=== PATIENT | male | born 1930 | race Caucasian/White ===

== ENCOUNTER 2017-01-29 13:00 | Inpatient (IN) | payer MEDICARE, OTHER ==
[~2017-01-29] VITALS: Ht 182.9 cm; Wt 81.0 kg
--- NOTE | ~2017-01-29 | CON ---
PATIENT'S NAME: FOUZIA FIGUEROA [facility] AGE: 86 Y [address] ROOM: [place] [address] LOCATION: GPCU ADMIT DATE: 01/29/2017 Consultation DISCHARGE DATE: FAMILY PHYSICIAN: Oskar Sol MD ATTENDING PHYSICIAN: BIJU HILL DATE OF CONSULTATION: 01/29/2017 REFERRING PHYSICIAN: Sari Roberts MD REFERRING PHYSICIAN: 1. Biju Hill MD. 2. Oskar Sol MD. CONSULTING PHYSICIAN: Sari Roberts MD. REASON FOR CONSULTATION: Possible biliary obstruction. HISTORY OF PRESENT ILLNESS: The patient is a demented 86-year-old gentleman, who was noncommunicative. He is unable to answer any questions. The history has been obtained through the who lives with him. The patient has not been well for the last several weeks. According to the , he has not been eating. He was caught particularly bad for the last three days. He started vomiting. According to her, he also had some fever and chills. He ultimately was so weak that he was brought to [place]. In [place], he was noted to have abnormal liver enzymes. He did have a CT of the abdomen and pelvis done that did not show any dilated ducts. However, his bilirubin continued to increase serially. His bilirubin was up to 6.7 with an alkaline phosphatase of 453, ALT of 79, AST of 123. Yesterday, the bilirubin was 5.8, ALT was 82, and AST was 151 and he also had a high lipase of 388. Amylase is normal at 106. Because of this concern, he was transferred here for further management. Denies any fever. He does have fever initially. White count is normal at 6.1. The patient is not complaining of any pain, however, the history is not reliable. At this point, he says he is asymptomatic. ALLERGIES: HE HAS A LITTLE ADVERSE REACTION TO ONDANSETRON. CURRENT MEDICATIONS: Include: 1. Allopurinol. 2. Metoprolol. PATIENT'S NAME: FOUZIA FIGUEROA [facility] AGE: 86 Y [address] ROOM: [place] [address] LOCATION: GPCU ADMIT DATE: 01/29/2017 Consultation DISCHARGE DATE: FAMILY PHYSICIAN: Oskar Sol MD ATTENDING PHYSICIAN: BIJU HILL 3. Glimepiride. 4. Pantoprazole. 5. Aspirin. 6. . 7. Sitagliptin. 8. Trazodone. 9. Atorvastatin. 10. Ranitidine. 11. Aricept. PAST MEDICAL HISTORY: He also has a history of dementia. He has a history of prostate CA. He had a prostatectomy done. He subsequently has had a raise in PSA and has been followed for that. He also has had coronary stents placed. He has a history of hypertension and diabetes mellitus. There is a history of possible hyperlipidemia also. About a year ago, in 2012, he apparently did have surgical resection done. This was probably for a perforated colon. We had a colostomy and this was reconnected. He has not had a problem since then. In 2004, Dr. Larson had operated on him for ruptured sigmoid diverticulitis. This colostomy was reversed in 2005. He had partial sigmoid colectomy. He also had an appendectomy at that time. He has also had herniorrhaphy in the past. In 2004, he does have a history of cholelithiasis, although I do note think he has had any resection done for that. FAMILY HISTORY: Noncontributory. REVIEW OF SYSTEMS: A detailed 10-point review of system was with the family history and negative other than what is mentioned in the history of present illness and past medical history. PHYSICAL EXAMINATION: GENERAL: Today, he is alert and awake, appears to be in no acute distress right now. VITAL SIGNS: Temperature 98, pulse is 104 per minute, respiratory rate 18, blood pressure is 124/60. HEENT: Examination reveals mild icterus, but no pallor. Oral cavity is normal. Nasal passages are clear. NECK: No masses are felt. No thyromegaly is felt. CARDIOVASCULAR: S1 and S2. Peripheral pulses are palpable and normal. No carotid bruits are heard. CHEST: Clear to auscultation bilaterally. No wheezes. No rhonchi. PATIENT'S NAME: FOUZIA FIGUEROA [facility] AGE: 86 Y [address] ROOM: [place] [address] LOCATION: GPCU ADMIT DATE: 01/29/2017 Consultation DISCHARGE DATE: FAMILY PHYSICIAN: Oskar Sol MD ATTENDING PHYSICIAN: BIJU HILL ABDOMEN: Soft. Nontender. There is mild gastric distention. MUSCULOSKELETAL: No obvious deformity was seen. NEUROLOGIC: He has dementia. He does talk incoherently. No acute neurological deficit seen. PELVIC/RECTAL: Deferred at this time. LABORATORY DATA: UA with microscopy, there is small amount of blood otherwise unremarkable. CBC showed WBC 5.2, hemoglobin 12.7, hematocrit 36, and platelet count 144. Complete metabolic screen shows sodium 132, potassium 3.9, chloride 98, bicarb is 27, BUN is 11, creatinine is 1.3. Total bilirubin 6.5, ALT of 90, AST is 133, alkaline phosphatase is 576, lipase is high up to 1415. CT images as above. The patient's MRCP is pending. IMPRESSION: The patient with a history of abnormal liver enzymes and high amylase. This likely does represent biliary pancreatitis as well as possible bile obstruction. We will await the results of the MRCP. The procedure of the whole differential of obstructive jaundice was explained to the daughter and the patient's . I did draw images for them. The procedure of upper endoscopy, retrograde cholangiopancreatography was explained in detail to the patient's and daughter. All risks, including but not limited to, failure to complete, anesthesia, bleeding, perforation, acute pancreatitis was clearly explained. They did ask some questions and gave us informed consent. We will await the results of the MRCP and then decide if we need to proceed with ERCP. MD AURA METZ/sampson /[id number] d: 01/29/17 2346 t: 01/31/17 1813, CONSULTATION REPORT
--- NOTE | ~2017-01-29 | HP ---
PATIENT'S NAME: FOUZIA FIGUEROA [facility] AGE: 86 Y [address] ROOM: [place] [address] LOCATION: GPCU ADMIT DATE: 01/29/2017 History & Physical DISCHARGE DATE: FAMILY PHYSICIAN: Oskar Sol MD ATTENDING PHYSICIAN: BIJU DELEON DATE OF SERVICE: CHIEF COMPLAINT: Biliary obstruction, nausea, vomiting, and abdominal pain. HISTORY OF PRESENT ILLNESS: This is an 86-year-old male with a history of dementia, type 2 diabetes, hypertension, who is transferred from [place] after presenting with nausea, vomiting, and diminished appetite, as well as some abdominal pain yesterday. The patient on evaluation was noted to have LFT abnormalities suggestive of biliary obstruction pattern. The patient was admitted and had supportive care as well as CAT scan of the abdomen done which did not exactly show anything to explain a biliary obstruction. However, patient's laboratory abnormalities are mildly worsened between yesterday and today and the patient subsequently is transferred here for further workup. The patient during my evaluation appears to be confused but per family who are at the bedside, they report that this is perhaps a baseline for him. The patient has had diminished appetite for the past several weeks, but the nausea and vomiting symptoms are particularly worse over the last 2 days at which point he was not able to tolerate any p.o. intake at all. The patient otherwise is resting comfortably with no reports of any fever or chills. PAST MEDICAL HISTORY: 1. Dementia. 2. Type 2 diabetes. 3. Hypertension. SOCIAL HISTORY: The patient has a remote history of smoking, but has quit for over 25 years. Occasional alcohol use, but no illicit drugs use reported. The patient lives at home with who is the primary pathology supervisor for him. FAMILY HISTORY: The patient has a history of bone cancer in his brother and diabetes in his mother. REVIEW OF SYSTEMS: All systems with the help of family members have been reviewed and are all negative except as described in the HPI. PATIENT'S NAME: FOUZIA FIGUEROA [facility] AGE: 86 Y [address] ROOM: [place] [address] LOCATION: GPCU ADMIT DATE: 01/29/2017 History & Physical DISCHARGE DATE: FAMILY PHYSICIAN: Oskar Sol MD ATTENDING PHYSICIAN: BIJU DELEON PHYSICAL EXAMINATION: VITAL SIGNS: Afebrile, blood pressure 124/71, heart rate 72, respiratory rate 18, saturating 95% on room air. HEENT: Dry mucosal membranes. Conjunctival pallor and scleral icterus noted. SKIN: Without rash or lesions. CHEST: Clear to auscultation bilaterally. HEART: S1 and S2. Regular rate and rhythm. ABDOMEN: Soft. Mid epigastrium tenderness to palpation noted. Positive bowel sounds. NEUROLOGICAL: Grossly nonfocal extremities. MUSCULOSKELETAL: No joint effusion or tenderness noted. DIAGNOSTIC DATA: CT of the abdomen done with IV contrast, not particularly showing any stones either in the gallbladder or common bile duct. No masses around the bile duct are seen as well. ASSESSMENT AND PLAN: 1. Biliary obstruction. LFT rise pattern very much suggestive of this despite negative CT abdomen. We will have an MRCP done to further assess. We will continue with IV Zosyn and get blood cultures in the meantime as well to cover our basis for this ascending cholangitis or acute cholecystitis in the setting and await GI input. 2. Acute pancreatitis, this is likely secondary to biliary obstruction. Lipase in the 800s and has clinical symptoms of acute pancreatitis as well. We will go ahead and treat with IV fluids, pain management, and supportive care going ahead and monitor for progress clinically. 3. Type 2 diabetes. The patient is on oral hypoglycemics at home. We will use sliding scale insulin while n.p.o. and continue to follow. 4. Essential hypertension. We will resume his home medications based on how his blood pressure does in the setting of his current and n.p.o. status. 5. Dementia, [id number]. 6. Deep vein thrombosis prophylaxis. We will use subcu heparin. MD ROSIE CORDON/sampson /[id number] D: [id number] HISTORY & PHYSICAL
--- NOTE | ~2017-01-29 | CON ---
PATIENT'S NAME: FOUZIA FIGUEROA [facility] AGE: 86 Y [address] ROOM: [address] [place], [place] [address] LOCATION: GPCU ADMIT DATE: 01/29/2017 Consultation DISCHARGE DATE: FAMILY PHYSICIAN: Oskar Sol MD ATTENDING PHYSICIAN: BIJU DELEON REFERRING PHYSICIAN: Sari Roberts MD ADDENDUM: I received the old cardiology records and I have to add the following. The patient was treated at [facility] and not at [facility] on January 31 to February 01, 2006. He had recent ischemic stress test and subsequent catheterization showed severe stenosis of the proximal left anterior descending artery and total occlusion of the mid left anterior descending artery. There was a successful intervention with deployment of three 2.75 diameter Taxus drug-eluting stents, two in the mid lesion, one in the proximal. EKG showed sinus rhythm in 2005. ERLINDA ANDREWS MD PE/sampson /[id number] d: 02/01/172207 t: 02/03/17903, CONSULTATION REPORT
--- NOTE | ~2017-01-29 | CON ---
PATIENT'S NAME: FOUZIA ALMENDAREZ [facility] AGE: 86 Y [address] ROOM: [place] [address] [facility] ADMIT DATE: 01/29/2017 Consultation DISCHARGE DATE: FAMILY PHYSICIAN: Oskar Sol MD ATTENDING PHYSICIAN: BIJU DELEON REFERRING PHYSICIAN: Sari Roberts MD HISTORY OF PRESENT ILLNESS: This consult requested by the Hospitalist Service because of atrial fibrillation. The initial impression was that this condition was not known before, however, after I read the transfer note from [place], atrial fibrillation is mentioned in his past medical history without details provided. The patient was presented to [place] because of anorexia and vomiting and found to have elevated liver enzymes and jaundice without clear cause, so he was transferred for a higher level of care. Since his arrival, he also has developed elevation of his lipase and he is treated as pancreatitis. In terms of his cardiac history, this is provided by family members as the patient has quite advanced dementia. He reportedly had a coronary stent around 2005 at [facility]. There is no history of cerebrovascular accident. He has diabetes type 2 and hypertension. PAST SURGICAL HISTORY: He had several hernia repairs. FAMILY HISTORY: Both parents in old age from natural causes, details unknown. 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 He quit smoking 28 years ago. He does not drink any significant amounts of alcohol. Lives at home with his . REVIEW OF SYSTEMS: There is no history of chest pain, shortness of breath, or syncope. No history of any bleeding disorder. He has fallen at least 4 times in the last year, most recently a week ago. He is very unsteady on his feet, but apparently does not use any assisting device. Remaining review of systems is negative. OUTPATIENT MEDICATIONS: 1. Allopurinol 300 mg daily. 2. Toprol-XL 25 mg daily. 3. Glimepiride 4 mg 1-1/2 tablet daily. 4. Pantoprazole 40 mg daily. 5. Lipitor 40 mg daily. 6. Aspirin 81 mg daily. PATIENT'S NAME: FOUZIA ALMENDAREZ [facility] AGE: 86 Y [address] ROOM: [place] [address] LOCATION: GPCU ADMIT DATE: 01/29/2017 Consultation DISCHARGE DATE: FAMILY PHYSICIAN: Oskar Sol MD ATTENDING PHYSICIAN: BIJU DELEON 7. Donepezil 10 mg daily. 8. Quetiapine 50 mg in the evening. 9. Januvia 100 mg daily. 10. Trazodone 50 mg in the evening. 11. Ranitidine 300 mg in the evening. PHYSICAL EXAMINATION: GENERAL: The patient is a pleasant, elderly man. VITAL SIGNS: He is 6 feet, weighs 77.4 kg. Blood pressure 132/72, pulse 57, but his electrocardiogram just now has a heart rate of 105. He is febrile. He is jaundiced. HEENT: Head: Normocephalic and atraumatic. NECK: Supple. No jugular venous distention or carotid bruits. LUNGS: Very few rales in the base on deep inspiration. HEART: Distant, irregular first and second heart sounds. ABDOMEN: Soft and nontender. EXTREMITIES: Lower extremities, no peripheral edema. Dorsalis pedis pulses are 2+. DIAGNOSTIC DATA: Electrocardiogram shows atrial fibrillation with rapid ventricular response, low voltage in the limb leads, diffuse T-wave changes. IMPRESSION: 1. Coronary artery disease by history. 2. Atrial fibrillation that possibly is chronic and possibly the patient is not anticoagulated because of the falls. 3. Hypertension. 4. Diabetes type 2. 5. Acute pancreatitis. 6. Jaundice. PLAN: I will check some cardiac markers. Review the echocardiogram. Probably, he will need a Lexiscan when the other medical problems are controlled. In terms of anticoagulation, it may be risky and he may be a candidate for left appendage closure, that we will discuss down the road. Thank you for allowing to participate in the care of Mr. Almendarez. ERLINDA ANDREWS MD PATIENT'S NAME: FOUZIA ALMENDAREZ [facility] AGE: 86 Y [address] ROOM: [address] [place], [place] [address] LOCATION: GPCU ADMIT DATE: 01/29/2017 Consultation DISCHARGE DATE: FAMILY PHYSICIAN: Oskar Sol MD ATTENDING PHYSICIAN: BIJU DELEON /[id number] d: 01/30/17 1925 t: 01/31/17 0749, CONSULTATION REPORT
--- NOTE | ~2017-01-29 | ECHO ---
Transthoracic Echocardiography Report (TTE) Demographics Patient Name FOUZIA FIGUEROA Date of Study 01/30/2017 Patient Number [id number] Visit Number [id number] Date of 1930 Room Number G6319 Gender Male Number Age 86 year(s) Referring Ebenezer Rosas MD Dry Cleaner Irving Murrell RVT, Physician RDCS Physician Interpreting Shahab Strauss Chief Lock Operator Physician A Supervising Ordering [facility] MD/MLP Physician Nurse Stress Well Servicing Rig Operator Conclusions Contractility Score Summary Normal Left Ventricular contractility was noted. Summary The estimated left ventricular ejection fraction is 55-60%. Mild concentric left ventricular hypertrophy. Diastolic function indeterminate due to patient's arrhythmia. Mildly dilated right ventricle. Mildly reduced right ventricular function. The left atrium is moderately dilated. There is no evidence of patent foramen ovale or atrial septal defect by color Doppler. Mild tricuspid regurgitation by color Doppler. Normal estimated pulmonary artery pressure. Procedure Type of Study TTE procedure:2D Echocardiogram. Procedure Date Date: 01/30/2017 Start: 01:39 PM Study Location: Inpatient Portable Technical Quality: Fair due to lung interference. Indications:Atrial fibrillation. Appropriate Use Criteria: 8 Patient Status: Routine Rhythm: Atrial fibrillation HR: 107 bpm BP: 137/72 mmHg M-Mode/2D Measurements LV Diastolic Dimension: 3.54 cm LV Systolic Dimension: 2.55 cm LV Septum Diastolic: 2 cm LV PW Diastolic: 1.46 cm AO Root Dimension: 2.4 cm Cardiac Output: 4.3 l/min AV Cusp Separation: 1.9 cm RV Diastolic Dimension: 2.83 cm LA volume: 83 ml LVOT: 2.1 cm RV Base: 3.12 cm LVOT VTI: 11.6 cm RV Mid: 3.25 cm LV Stroke volume: 40.16 ml TAPSE: 1.08 cm TDI-S': 13 cm/s Doppler Measurements AV Peak Velocity: 0.92 m/s MV Peak E-Wave: 0.91 m/s AV Peak Gradient: 3.42 mmHg MV Peak A-Wave: 0.36 m/s AV Mean Gradient: 2 mmHg MV E/A Ratio: 2.55 LVOT Peak Velocity: 0.63 m/s MV P1/2t: 47 msec TR Gradient:25.6 mmHg PV Peak Velocity: 0.79 m/s Estimated RAP:5 mmHg PV Peak Gradient: 2.5 mmHg Estimated RVSP: 31 mmHg Estimated PASP: 30.6 mmHg Findings Left Ventricle Mild concentric left ventricular hypertrophy. Diastolic function indeterminate due to patient's arrhythmia. Right Ventricle Mildly dilated right ventricle. Mildly reduced right ventricular function. Left Atrium The left atrium is moderately dilated. There is no evidence of patent foramen ovale or atrial septal defect by color Doppler. Right Atrium The right atrium is mildly dilated. Mitral Valve Normal mitral valve structure and function. Trivial mitral regurgitation by color Doppler. Aortic Valve The aortic valve is mildly sclerotic. Tricuspid Valve Mild tricuspid regurgitation by color Doppler. Normal estimated pulmonary artery pressure. Pulmonic Valve Normal pulmonic valve structure and function. Pericardial Effusion No evidence of pericardial effusion. Miscellaneous Visualized portions of the aortic root and ascending aorta appear normal in size. Suboptimal subcostal window to evaluate the IVC and interatrial septum. Pleural Effusion No evidence of pleural effusion. Contractility Score LV regional wall motion:(0-Non visualized 1-Normal 2-Hypokinesis 3-Akinesis 4-Dyskinesis 5-Aneurysm) Signature dtt: Robert Gudino dtd: 01/30/17 1957 Physician Self Edit
--- NOTE | ~2017-01-29 | ESTC ---
Cardiac Perfusion Imaging Demographics Patient Name CAROLINA Saab Gender Male Patient Number [id number] Race Visit Number [id number] Ethnicity Corporate ID Room Number G6319 Accession Number [id number] Height 72 inches Date of 1930 Weight 170 pounds Shahab Hernandez Interpreting KYLEE Reilly Date of study 02/03/2017 Physician Yair Jean MD Supervising /MLP Shahab Strauss NM Technologist Lesley Hale MD Ordering Physician Shahab Hale MD failure analysis technician Stress ECG Reading Shahab Strauss Nurse Benito Kline RN Physician Geoffrey Leon RN Procedure Procedure Type: Nuclear Stress Test:Pharmacological, Lexiscan, Cardiolite Stress Test Procedure Start time: 02/03/2017 00:00 Indications: History of CAD. Risk Factors The patient risk factors include:prior PCI;former tobacco use, treated hypercholesterolemia, treated hypertension, orally-treated diabetes mellitus, dyslipidemia and ( years not smokin). Conclusions Impression ECG portion of the lexiscan stress test is clinically negative for ischemia by diagnostic criteria. Myocardial perfusion imaging is mildly abnormal. The images reveal a predominantly reversible defect in the entire inferior wall inferolateral consistent with ischemia . Overall left ventricular systolic function was normal. The calculated LVEF is 79% and TID RATIO IS ELEVATED AT 1.39. This is a intermediate risk stress test. Stress Protocols Resting ECG A flutter negative Ts V1-3 Pre-stress physical exam: Patient assessed by Dr Gudino prior to testing. Stress Protocol:Pharmacologic Predicted HR: 135 bpm ECG Findings No ECG changes suggestive of ischemia. Arrhythmias No new rhythm abnormality. Symptoms No symptoms with Lexiscan infusion. Stress Interpretation Appropriate hemodynamic response to Lexiscan. No significant ST-T wave changes with Lexiscan. ECG portion is negative for ischemia by diagnostic criteria. Imaging Results Applied corrections - Motion correction applied High risk findings Summed scores - LV dilatation (TID) - Summed stress score: 21 - Summed rest score: 14 - Summed difference score: 7 Stress ejection Ejection fraction:79 % EDV :77 ml ESV :16 ml Stroke volume :61 ml LV mass :108 gr Imaging Protocols Rest Stress Isotope:Tc99m Sestamibi IV Isotope: Tc99m Sestamibi IV Isotope dose:12.83 mCi Isotope dose:39.3 mCi Date:02/03/2017 08:20 Date:02/03/2017 10:53 Technique: SPECT Technique: Gated Supine SPECT Supine IV remains in place after procedure. Procedure Medications - Regadenoson (Lexiscan) 0.4 mg IV over 10-15 sec. I.V. 0.4 mg. Medical History Admission Data Admission date: 01/29/2017 Admission Time: 13:21 Hospital Status: Inpatient. Signatures dtt: CHRISSY COREAS dtd: 02/03/17 0000 Physician Self Edit
--- NOTE | ~2017-01-29 | DS ---
PATIENT'S NAME: FOUZIA FIGUEROA [facility] AGE: 86 Y [address] ROOM: [id number] [place], [place] [id number] LOCATION: GPCU ADMIT DATE: 01/29/2017 Discharge Summary DISCHARGE DATE: 02/03/2017 FAMILY PHYSICIAN: Oskar Sol MD ATTENDING PHYSICIAN: David Hill PRINCIPAL DIAGNOSES: 1. Biliary obstruction. 2. Acute biliary pancreatitis. 3. Persistent AFib and A-flutter, new onset. 4. Type 2 diabetes. 5. Dementia. 6. Stable angina. 7. Essential hypertension. HOSPITAL COURSE: This is an 86-year-old male with history of diabetes, dementia, presented initially with complaints of abdominal pain and on initial evaluation was found to have LFTs abnormalities consistent with a biliary obstruction as well as lipase elevation consistent with biliary related acute pancreatitis. The patient was promptly admitted and started on broad-spectrum antibiotics for possible ascending cholangitis related to this and GI eval. The patient did have an MRCP done, which did not show clear signs of an obstruction as well as any stones or any mass causing an obstruction. The patient was monitored clinically at length of hospital stay and showed significant improvement and supportive care with regard to his biliary obstructing symptoms and LFTs continued to trend towards normalizing at this point. The patient on tele monitor was incidentally found to be in AFib, A- flutter, and rhythm stayed persistent. The patient was evaluated by Cardiology and after discussion with his family at length about the pros and cons of anticoagulation, it was decided that the patient be brought on anticoagulation and started on Eliquis after 24 to 48 hours stay on heparin drip. The patient subsequently had a cardiac stress test done to further risk stratify and workup of an invasive and stress test today returned to be positive for reversible ischemia. The patient however did not have symptoms with regard to that and troponins have been negative and patient ambulating with little difficulty. After discussing with the cardiology team and family, the patient will be discharged to home today and he is to come back as outpatient on Monday, 02/06 at 7 a.m. to have cardiac cath done as an outpatient procedure. PHYSICAL EXAMINATION: VITAL SIGNS: Stable. Heart rate 80s to 90s. CHEST: Clear to auscultation bilaterally. HEART: S1, S2, regular. ABDOMEN: Soft, nontender, nondistended. EXTREMITIES: Without edema. PATIENT'S NAME: FOUZIA FIGUEROA [facility] AGE: 86 Y [address] ROOM: [place] [id number] [facility] ADMIT DATE: 01/29/2017 Discharge Summary DISCHARGE DATE: 02/03/2017 FAMILY PHYSICIAN: Oskar Sol MD ATTENDING PHYSICIAN: David Hill MEDICATIONS: Per MAR includin. Metoprolol 50 mg p.o. b.i.d. 2. Eliquis 5 mg p.o. b.i.d. The patient instructed to not take Eliquis the day prior cardiac cath. DISPOSITION: Home, will follow up with PCP and cardiology. Greater than 30 minutes were spent in discharge planning and facilitating. MD ROSIE CORDON/modl /[id number] d: 02/04/17 0315 t: 02/05/17 1559, DISCHARGE SUMMARY
[2017-01-29] MEDS ORDERED: ZYLOPRIM300 MG PO (14:21)
[2017-01-29] MEDS ORDERED: TOPROL XL25 MG PO (14:21)
[2017-01-29] MEDS ORDERED: PROTONIX40 MG PO (14:22)
[2017-01-29] MEDS ORDERED: AMARYL2 MG PO (14:22)
[2017-01-29] MEDS ORDERED: ASPIRIN LO-DOSE81 MG PO (14:23)
[2017-01-29] MEDS ORDERED: LIPITOR40 MG PO ×2 (14:23→14:25)
[2017-01-29] MEDS ORDERED: JANUVIA 100 MG100 MG PO (14:24)
[2017-01-29] MEDS ORDERED: SEROQUEL25 MG PO (14:24)
[2017-01-29] MEDS ORDERED: DESYREL50 MG PO (14:25)
[2017-01-29] MEDS ORDERED: RANITIDINE HCL300 MG PO (14:26)
[2017-01-29] MEDS ORDERED: ARICEPT10 MG PO (14:27)
[2017-01-29 14:47] LABS: HEMOGLOBIN 12.7 g/dL (11.0-16.0); MCH 33.4 pg (27.0-34.0); MCHC 35.3 gm/dL (32.0-36.5); MCV 94.7 fl (83.0-98.0); MPV 9.8 fl (9.4-12.4); PLATELET COUNT 144 K/uL (150-450); WBC 5.2 K/uL (4.0-11.0)
[2017-01-29 14:55] LABS: INR - (THERAPEUTIC) 1.08 (0.92-1.07); PROTIME 11.3 SECONDS (9.8-11.4)
[2017-01-29 15:03] LABS: ALBUMIN 2.6 gm/dL (3.5-5.0); ANION GAP 10.9 (10.0-19.0); CALCIUM 8.5 mg/dL (8.5-10.5); CREATININE 1.3 mg/dL (0.6-1.3); MAGNESIUM 1.8 mg/dL (1.8-2.6); POTASSIUM 3.9 mMol/L (3.7-5.1); TOTAL BILIRUBIN 6.5 mg/dL (0.0-1.5); TOTAL PROTEIN 6.5 g/dL (6.0-8.4)
[2017-01-29 15:14] LABS: ABSOLUTE NEUTROPHIL CT (ANC) 3.1 K/uL (1.4-9.0); LYMPHOCYTE # 1.2 K/uL (0.8-4.0); LYMPHOCYTE % 23 %; MONOCYTE # 0.4 K/uL (0.0-1.0); SEGMENTED NEUTROPHIL # 3.1 K/uL (1.4-9.0); SEGMENTED NEUTROPHIL % 60 %
[2017-01-29 16:04] LABS: BLOOD URINE 10 /UL (NEGATIVE); COLOR URINE BROWN (YELLOW); GLUCOSE URINE 50 mg/dL (NEGATIVE); KETONE URINE NEGATIVE (NEGATIVE); LEUKOCYTES URINE 25 /UL (NEGATIVE); NITRITE URINE NEGATIVE (NEGATIVE); PROTEIN URINE 30 mg/dL (NEGATIVE); SPEC GRAVITY URINE 1.015 (1.003-1.035); TURBIDITY URINE CLEAR (CLEAR); UROBILINOGEN URINE 4 mg/dL (NORMAL)
[2017-01-29 16:21] LABS: BACTERIA URINE MODERATE (NEGATIVE); EPITHELIAL URINE 0-2 #/HPF (NEGATIVE); RBC URINE 0-2 #/HPF (NEGATIVE)
[2017-01-29 16:22] LABS: MUCUS URINE 2+ (NEGATIVE)
[2017-01-30 06:31] LABS: HEMATOCRIT 34.8 % (33.0-50.0); HEMOGLOBIN 11.9 g/dL (11.0-16.0); MCH 32.9 pg (27.0-34.0); MCHC 34.2 gm/dL (32.0-36.5); MCV 96.1 fl (83.0-98.0); MPV 10.2 fl (9.4-12.4); PLATELET COUNT 133 K/uL (150-450); RBC 3.62 M/uL (3.50-5.50); RDW-CV 14.1 % (11.9-14.6); WBC 4.6 K/uL (4.0-11.0)
[2017-01-30 06:43] LABS: ALBUMIN 2.4 gm/dL (3.5-5.0); ANION GAP 11.1 (10.0-19.0); CALCIUM 7.9 mg/dL (8.5-10.5); MAGNESIUM 1.6 mg/dL (1.8-2.6); POTASSIUM 4.1 mMol/L (3.7-5.1); TOTAL BILIRUBIN 6.2 mg/dL (0.0-1.5); TOTAL PROTEIN 5.8 g/dL (6.0-8.4)
[2017-01-30 07:18] LABS: LYMPHOCYTE % 21 %; MONOCYTE # 0.4 K/uL (0.0-1.0); SEGMENTED NEUTROPHIL % 66 %
[2017-01-30 13:41] LABS: INR - (THERAPEUTIC) 1.08 (0.92-1.07); PROTIME 11.3 SECONDS (9.8-11.4)
[2017-01-30 17:19] LABS: CPK 248 IU/L (35-332)
[2017-01-31 02:09] LABS: HEMATOCRIT 34.5 % (33.0-50.0); HEMOGLOBIN 12.2 g/dL (11.0-16.0); MCH 32.9 pg (27.0-34.0); MCHC 35.4 gm/dL (32.0-36.5); MPV 10.2 fl (9.4-12.4); RBC 3.71 M/uL (3.50-5.50); RDW-CV 13.9 % (11.9-14.6); WBC 5.2 K/uL (4.0-11.0)
[2017-01-31 02:13] LABS: PLATELET COUNT 166 K/uL (150-450)
[2017-01-31 02:29] LABS: ALBUMIN 2.4 gm/dL (3.5-5.0); ANION GAP 11.9 (10.0-19.0); CALCIUM 7.9 mg/dL (8.5-10.5); MAGNESIUM 1.6 mg/dL (1.8-2.6); POTASSIUM 3.9 mMol/L (3.7-5.1); TOTAL BILIRUBIN 5.9 mg/dL (0.0-1.5); TOTAL PROTEIN 6.1 g/dL (6.0-8.4)
[2017-01-31 02:47] LABS: BANDED NEUTROPHIL # 0.3 K/uL (0.0-0.1); BANDED NEUTROPHILS % 6 %; LYMPHOCYTE # 1.4 K/uL (0.8-4.0); LYMPHOCYTE % 27 %; MONOCYTE # 0.5 K/uL (0.0-1.0); SEGMENTED NEUTROPHIL # 2.7 K/uL (1.4-9.0); SEGMENTED NEUTROPHIL % 51 %
[2017-01-31] MEDS ORDERED: LEVOTHROID (SY50 MCG PO (09:48)
[2017-02-01 04:10] LABS: BASOPHIL % 0.3 %; EOSINOPHIL # 0.2 K/uL (0.0-0.5); EOSINOPHIL % 3.4 %; HEMATOCRIT 34.9 % (33.0-50.0); HEMOGLOBIN 12.2 g/dL (11.0-16.0); IMMATURE GRANULOCYTE # 0.1 K/uL (0.0-0.3); IMMATURE GRANULOCYTE % 1.5 %; LYMPHOCYTE # 1.2 K/uL (0.8-4.0); LYMPHOCYTE % 20.8 %; MCH 32.5 pg (27.0-34.0); MCV 93.1 fl (83.0-98.0); MONOCYTE # 0.6 K/uL (0.0-1.0); MONOCYTE % 9.5 %; MPV 9.8 fl (9.4-12.4); NEUTROPHIL # (ANC) 3.7 K/uL (1.4-9.0); NEUTROPHIL % 64.5 %; NRBC % 0 /100WBC (0-0.00); PLATELET COUNT 164 K/uL (150-450); RBC 3.75 M/uL (3.50-5.50); RDW-CV 14.4 % (11.9-14.6); WBC 5.8 K/uL (4.0-11.0)
[2017-02-01 04:59] LABS: ANION GAP 11.8 (10.0-19.0); CALCIUM 8.1 mg/dL (8.5-10.5); POTASSIUM 3.8 mEq/L (3.7-5.1)
[2017-02-01 05:00] LABS: ALBUMIN 2.4 gm/dL (3.5-5.0); MAGNESIUM 1.4 mg/dL (1.8-2.6); TOTAL BILIRUBIN 5.7 mg/dL (0.0-1.5); TOTAL PROTEIN 6.1 g/dL (6.0-8.4)
[2017-02-02 05:40] LABS: BASOPHIL % 0.4 %; EOSINOPHIL # 0.1 K/uL (0.0-0.5); EOSINOPHIL % 3.1 %; HEMATOCRIT 32.9 % (33.0-50.0); HEMOGLOBIN 11.5 g/dL (11.0-16.0); IMMATURE GRANULOCYTE # 0.1 K/uL (0.0-0.3); IMMATURE GRANULOCYTE % 1.7 %; LYMPHOCYTE % 21.1 %; MCH 32.3 pg (27.0-34.0); MCV 92.4 fl (83.0-98.0); MONOCYTE # 0.4 K/uL (0.0-1.0); MONOCYTE % 9.6 %; MPV 9.8 fl (9.4-12.4); NEUTROPHIL # (ANC) 2.9 K/uL (1.4-9.0); NEUTROPHIL % 64.1 %; NRBC % 0 /100WBC (0-0.00); PLATELET COUNT 185 K/uL (150-450); RBC 3.56 M/uL (3.50-5.50); RDW-CV 14.4 % (11.9-14.6); WBC 4.6 K/uL (4.0-11.0)
[2017-02-02 05:53] LABS: ALBUMIN 2.3 gm/dL (3.5-5.0); ANION GAP 12.9 (10.0-19.0); CREATININE 0.8 mg/dL (0.6-1.3); MAGNESIUM 1.4 mg/dL (1.8-2.6); POTASSIUM 3.9 mMol/L (3.7-5.1); TOTAL PROTEIN 6.2 g/dL (6.0-8.4)
[2017-02-02 05:56] LABS: TOTAL BILIRUBIN 4.5 mg/dL (0.0-1.5)
[2017-02-03 04:02] LABS: BASOPHIL % 0.4 %; EOSINOPHIL # 0.2 K/uL (0.0-0.5); EOSINOPHIL % 3.2 %; HEMATOCRIT 35.5 % (33.0-50.0); HEMOGLOBIN 12.1 g/dL (11.0-16.0); IMMATURE GRANULOCYTE # 0.1 K/uL (0.0-0.3); LYMPHOCYTE # 1.4 K/uL (0.8-4.0); MCH 32.6 pg (27.0-34.0); MCHC 34.1 gm/dL (32.0-36.5); MCV 95.7 fl (83.0-98.0); MONOCYTE # 0.6 K/uL (0.0-1.0); MONOCYTE % 10.4 %; MPV 9.9 fl (9.4-12.4); NEUTROPHIL # (ANC) 3.2 K/uL (1.4-9.0); NRBC % 0 /100WBC (0-0.00); PLATELET COUNT 201 K/uL (150-450); RBC 3.71 M/uL (3.50-5.50); RDW-CV 14.8 % (11.9-14.6); WBC 5.4 K/uL (4.0-11.0)
[2017-02-03 04:23] LABS: ALBUMIN 2.5 gm/dL (3.5-5.0); ANION GAP 10.9 (10.0-19.0); CALCIUM 8.7 mg/dL (8.5-10.5); CREATININE 0.9 mg/dL (0.6-1.3); MAGNESIUM 1.5 mg/dL (1.8-2.6); POTASSIUM 3.9 mMol/L (3.7-5.1); TOTAL BILIRUBIN 3.6 mg/dL (0.0-1.5); TOTAL PROTEIN 6.6 g/dL (6.0-8.4)
[2017-02-03] MEDS ORDERED: ALOGLIPTIN25 MG PO (18:19)
[2017-02-03] MEDS ORDERED: ELIQUIS5 MG PO (18:21)
[2017-02-03] MEDS ORDERED: LEVAQUIN500 MG PO (18:23)
== END 2017-02-03 19:45 | disposition disaster alternative care site (69) | DRG 444 ==
LOC: GPCU 13:00
PROVIDERS: Internal Medicine Cardiovascular Disease; ADMIT Internal Medicine
DX: K83.1 Obstruction of bile duct (principal); K85.10 Biliary acute pancreatitis without necrosis or infection; I48.1 Persistent atrial fibrillation; F03.90 Unspecified dementia, unspecified severity, without behavioral disturbance, psychotic disturbance, mood disturbance, and anxiety; R17 Unspecified jaundice; E11.9 Type 2 diabetes mellitus without complications; Z79.84 Long term (current) use of oral hypoglycemic drugs; I10 Essential (primary) hypertension; Z87.891 Personal history of nicotine dependence; Z85.46 Personal history of malignant neoplasm of prostate; I25.10 Atherosclerotic heart disease of native coronary artery without angina pectoris; Z98.61 Coronary angioplasty status; Z91.81 History of falling; E78.5 Hyperlipidemia, unspecified; N20.0 Calculus of kidney
CPT/HCPCS: A9270; A9500; G0009; J1644; J2001; J2543; J2785; J3475; J7030; J7050

== ENCOUNTER → 2017-01-29 | Outpatient (CLI) | payer MEDICARE, OTHER ==
[~2017-01-29] MED LIST: ALOGLIPTIN25 MG PO; AMARYL2 MG PO; ARICEPT10 MG PO; ASPIRIN LO-DOSE81 MG PO; DESYREL50 MG PO; ELIQUIS5 MG PO; JANUVIA 100 MG100 MG PO; LEVAQUIN500 MG PO; LEVOTHROID (SY50 MCG PO; LIPITOR40 MG PO; PROTONIX40 MG PO; RANITIDINE HCL300 MG PO; SEROQUEL25 MG PO; TOPROL XL25 MG PO; ZYLOPRIM300 MG PO
== END | disposition disaster alternative care site (69) ==
LOC: GAMB 12:14
DX: K76.9 Liver disease, unspecified (principal); I48.91 Unspecified atrial fibrillation; R94.5 Abnormal results of liver function studies; Z79.84 Long term (current) use of oral hypoglycemic drugs; Z79.899 Other long term (current) drug therapy
CPT/HCPCS: A0425; A0426